=== PATIENT | female | born 2000 | race Caucasian/White ===

== ENCOUNTER 2018-03-19 16:01 | Emergency (ER) | payer BC ==
--- OUTSIDE RECORDS SUMMARY | 2018-03-19 16:16 | XMS REPORT | Continuity of Care Document ---
:2000 Author Organization [facility] Care Team Providers Name Role Phone JU RANDLE Admitting Physician JU RANDLE Attending Physician Allergies and Intolerances Code Code Allergy Type Reaction Severity Start End Status System Substance Date Date 79339 RXNorm penicillin Drug Abdominal Unknown intolerence discomfort 2016 (disorder) Medications RxNorm Medication Dose Route Instructions Start Date End Date Status 446012 Amoxicillin 875 MG 1 tab oral orally 2 times per Active / Clavulanate 125 day MG Oral Tablet Ortho Tri-Cyclen LO 1 tab oral orally every day Active Problems No Data in the system Procedures No data in the system Results Microbiology Results w Susceptibilities Order: CULTURE THROAT- COMPREHENSIVE Specimen Source: Body Site:Isolate #1:1Haemophilus influenzae (Predominant)(beta lactamase positive)Performing Lab Footnotes:[facility] - [id number] - [address] [place] [address] PAMELA ACOSTA Social History Code Code System Social History Description Dates Observed Observation 651492060 SNOMED CT Current Smoking Unknown if ever Status smoked UNK AdministrativeGender Sex Assigned At Unknown Vital Signs No data in the system Goals Section No data in the system Health Concerns No data in the systemEncounter Diagnosis Date Code Code System Diagnosis Status J20.9 ICD10 ACUTE BRONCHITIS UNSPECIFIED Active Advance Directives No Data in the System Family History No data in the system Functional Status No data in the system Immunizations No data in the system Medical Equipment No data in the system Mental Status No data in the system Assessment and Plan Assessments No data in the systemPlan Of Treatment No data in the systemPending Tests No data in the system Hospital Discharge Instructions No data in the system Reason for Visit No data in the system
--- NOTE | 2018-03-19 17:12 | ED ---
Throat Pain/Nasal Congestion - HPI Summary HPI Summary: Patient is a 17-year-old female who presents emergency department for right jaw pain and difficulty in closing mouth. Patient states she was at the movie theater leaning on the right side of her face when jaw Suddenly Became Painful and she had Difficulty Opening. States She Has Had Jaw Pain in the past and Found Her Jaw Clicking but Has Never Had This Issue before. She denies recent illness, sore throat, dental pain. Symptoms Are Mild in Severity. No Current Modifying Factors. - History of Current Complaint Chief Complaint: EDFacialInjury Time Seen by Provider: 03/19/18 16:53 Hx Obtained From: Patient - Allergies/Home Medications Allergies/Adverse Reactions: Allergies Allergy/AdvReac Type Severity Reaction Status Date / Time No Known Allergies Allergy Verified 03/19/18 16:05 PMH/Surg Hx/FS Hx/Imm Hx Previously Healthy: Yes Infectious Disease History: No Infectious Disease History: Denies: Traveled Outside the [place] in Last 30 Days - Social History Occupation: Works From/At Home Lives: With Family Alcohol Use: Occasionally Substance Use Type: Reports: None Smoking Status (MU): Never Smoked Tobacco Review of Systems Constitutional: Negative Negative: Fever, Chills Eyes: Negative ENT: Negative Negative: Dental Pain, Sore Throat All Other Systems Reviewed And Are Negative: Yes Physical Exam Triage Information Reviewed: Yes Vital Signs On Initial Exam: Initial Vitals Temp Pulse Resp BP Pulse Ox 97.8 F 94 18 157/78 100 03/19/18 16:05 03/19/18 16:05 03/19/18 16:05 03/19/18 16:05 03/19/18 16:05 Vital Signs Reviewed: Yes Appearance: Positive: Well-Appearing - Pt. sitting on bed in NAD. S.O present. Skin: Positive: Warm, Dry Head/Face: Positive: Normal Head/Face Inspection Eyes: Positive: Normal ENT: Positive: Pharynx normal, Other - Able to open and close jaw without difficulty. Pain over the right TMJ.. Negative: Nasal congestion, Nasal drainage Neck: Positive: Supple, Nontender, No Lymphadenopathy Neurological: Positive: Normal, CN Intact II-III Psychiatric: Positive: Affect/Mood Appropriate Diagnostics - Vital Signs Vital Signs Temp Pulse Resp BP Pulse Ox 03/19/18 16:05 97.8 F 94 18 157/78 100 - Laboratory Lab Statement: Any lab studies that have been ordered have been reviewed, and results considered in the medical decision making process. EENT Course/Dx - Course Course Of Treatment: Pt. presenting for difficulty opening and closing mouth. By the time I examined pt. her symptoms have improved and she is able to open and close mouth without difficulty. She only c/o mild pain to right TMJ. Advised ice and NSAIDS. To avoid opening mouth wide. Soft diet. Given oral sx f.u if needed. Will return to ER if sxs change or worsen. - Differential Diagnoses Differential Diagnoses: Mandibular/Maxillary Trauma, Mastoiditis, Odontogenic Pain, TMJ Syndrome - Diagnoses Provider Diagnoses: TMJ dysfunction Discharge - Sign-Out/Discharge Documenting (check all that apply): Patient Departure - Discharge Plan Condition: Good Disposition: HOME Patient Education Materials: Mandibular Dislocation (ED), Temporomandibular Disorder (ED) Referrals: Merlin Wheeler MD [Doctor of Dental Medicine] - Brooke ALAMO,Israel Jade [Primary Care Provider] - Additional Instructions: Schedule a follow up appointment with oral surgery if jaw pain persist Ice face intermittently NSAIDS for pain as directed such as motrin Soft diet x 2-3 days Avoid opening mouth wide Return to ER if symptoms change or worsen - Billing Disposition and Condition Condition: GOOD Disposition: Home
[2018-03-19 17:40] VITALS: BP 135/65
== END 2018-03-19 17:25 | disposition home or self-care (01) ==
LOC: ED 16:01
DX: M26.601 Right temporomandibular joint disorder, unspecified (principal)
CPT/HCPCS: 99282